=== PATIENT | female | born 1980 | race Two or more races ===

== ENCOUNTER 2017-08-06 09:45 | Emergency (ER) | payer OTHER ==
[~2017-08-06] VITALS: Ht 160 cm; Wt 96.4 kg
[~2017-08-06 09:45] MED LIST: Children's Advil PO; ENDOCET 5-3251 EACH PO; FEOSOL325 MG PO; NATALCARE RX1 TABLE1 PO
[2017-08-06] MEDS ORDERED: NAPROSYN500 MG PO (11:16)
[2017-08-06 12:13] VITALS: BP 152/96
== END 2017-08-06 12:15 | disposition home or self-care (01) ==
LOC: EME 09:45
DX: S93.402A Sprain of unspecified ligament of left ankle, initial encounter (principal); X58.XXXA Exposure to other specified factors, initial encounter
CPT/HCPCS: 73610; 99281; 99284